=== PATIENT | female | born 1940 | race Caucasian/White ===

== ENCOUNTER 2018-01-21 07:51 | Day surgery (SDC) | payer OTHER ==
[2018-01-20 11:33] VITALS: BMI 20.9
[2018-01-21 09:56] VITALS: TEMP 97.5
[2018-01-21 12:31] VITALS: BP 151/65; PULSE 56
--- NOTE | 2018-01-24 16:59 | PATH ---
Surgical Pathology Report Patient Name: [facility]. Rec. #: [id number] /Age/Gender: 1940 (Age: 77) / F Account: [id number] Location: [facility]-ENDOSCOPY Taken: 01/21/2018 Received: 01/21/2018 Reported: 01/24/2018 Physicians: Tato Dickey M.D. Specimen(s) Received A: BX 2ND PORTION DUODENUM AND DUODENAL BULB B: BX ANTRUM C: BX GASTRIC BODY POLYP D: BX RIGHT COLON POLYP Clinical History Iron deficiency anemia, family history of colon cancer Postoperative diagnosis: Gastric body polyp, right colon polyp, diverticulosis Final Diagnosis A. DUODENUM, SECOND PORTION AND DUODENAL BULB, BIOPSY: DUODENAL MUCOSA WITHOUT SIGNIFICANT PATHOLOGIC FINDINGS. B. STOMACH, ANTRUM, BIOPSY: POLYPOID GASTRIC ANTRAL MUCOSA WITH MILD CHRONIC GASTRITIS, FOCAL FOVEOLAR HYPERPLASIA RARE DILATED GLANDS, AND RARE INTESTINAL METAPLASIA. IMMUNOHISTOCHEMICAL STAIN FOR H. PYLORI IS NEGATIVE. C. GASTRIC BODY, POLYP, BIOPSY: FUNDIC GLAND POLYP. IMMUNOHISTOCHEMICAL STAIN FOR H. PYLORI IS NEGATIVE. D. COLON, RIGHT, POLYP, BIOPSY: TUBULAR ADENOMA. Electronically Signed Dorys Moon M.D. Gross Description A. Received in formalin, labeled "biopsy second portion of duodenum and duodenal bulb" are 5 hutson, irregular portions of soft tissue ranging from 0.1-0.6 cm. in greatest dimension. The specimens are submitted in toto in one cassette. B. Received in formalin, labeled "biopsy antrum" are 2 hutson, irregular portions of soft tissue averaging 0.4 cm. in greatest dimension. The specimens are submitted in toto in one cassette. C. Received in formalin, labeled "biopsy gastric body polyp" is a hutson, irregular portion of soft tissue measuring 0.3 cm. in greatest dimension. The specimen is submitted in toto in one cassette. D. Received in formalin, labeled "biopsy right colon polyp" are 3 hutson, irregular portions of soft tissue ranging from 0.1-0.6 cm. in greatest dimension. The specimens are submitted in toto in one cassette. DL/01/21/2018 saudi/01/21/2018
== END 2018-01-21 10:50 | disposition home or self-care (01) ==
LOC: JASU-ENDO 07:51
PROVIDERS: ATTEND Internal Medicine Gastroenterology
PROC: 0DB68ZX Excision of Stomach, Via Natural or Artificial Opening Endoscopic, Diagnostic (ICD-10-PCS; 2018-01-21)
PROC: 0DBK8ZX Excision of Ascending Colon, Via Natural or Artificial Opening Endoscopic, Diagnostic (ICD-10-PCS; 2018-01-21)
PROC: 0DB98ZX Excision of Duodenum, Via Natural or Artificial Opening Endoscopic, Diagnostic (ICD-10-PCS; principal; 2018-01-21 09:00)
DX: Z12.11 Encounter for screening for malignant neoplasm of colon (principal); Z80.0 Family history of malignant neoplasm of digestive organs; D50.9 Iron deficiency anemia, unspecified; K57.30 Diverticulosis of large intestine without perforation or abscess without bleeding; K64.8 Other hemorrhoids; D12.2 Benign neoplasm of ascending colon; K31.7 Polyp of stomach and duodenum
CPT/HCPCS: 88305-TC; 88342-TC

== ENCOUNTER 2019-06-14 06:56 | Day surgery (SDC) | payer OTHER ==
[2019-06-12 12:36] VITALS: BMI 20.5
[2019-06-14] MEDS: TROPICAMIDE 1% OPHTH SOLN 15 ML BOTTLE ONE ×3 (07:25→07:35)
[2019-06-14] MEDS: CIPROFLOXACIN 0.3% EYE DROPS 5 ML BOTTLE ONE ×3 (07:25→07:35)
[2019-06-14] MEDS: CYCLOPENTOLATE 2% OPHTH SOLN 2 ML BOTTLE ONE ×3 (07:25→07:35)
[2019-06-14] MEDS: PHENYLEPHRINE 2.5% OPHTH SOLN 15 ML BOTTLE ONE ×3 (07:25→07:35)
[2019-06-14] MEDS ORDERED: BSS (NA/CA/MG/K) BALANCED SALT SOLUTION OPHTH SOLN 15 ML BOTTLE ONE (08:49)
[2019-06-14] MEDS ORDERED: CARBACHOL 0.01% INTRA-OCULAR 1.5 ML VIAL ONE (08:49)
[2019-06-14] MEDS ORDERED: NEO/POLYMYX B SULF/DEXAMETH OPHTHALMIC 5ML BOTTLE ONE (08:49)
[2019-06-14] MEDS ORDERED: LIDOCAINE 1% P/F 10 MG/ML VIAL ONE (08:49)
[2019-06-14] MEDS ORDERED: MIDAZOLAM HCL 2 MG/2 ML SINGLE DOSE VIAL ONE (08:58)
[2019-06-14 09:33] VITALS: TEMP 97.5
[2019-06-14 09:59] VITALS: BP 159/73; PULSE 61
--- NOTE | 2019-06-14 23:30 | OP ---
DATE OF OPERATION: 06/14/2019 OPERATIVE PROCEDURE: Lens Phacoemulsification with Posterior Chamber Intraocular Lens Placement Right Eye PREOPERATIVE DIAGNOSIS: Visually Significant Cataract of Right Eye POSTOPERATIVE DIAGNOSIS: Visually Significant Cataract of Right Eye SURGEON: Roni Montenegro M.D. ANESTHESIA: MAC PROCEDURE: The patient was brought to the operating room and placed under monitored anesthesia care by Anesthesia. A drop of Tetracaine was then placed over the right eye. The patient was then prepped and draped in the usual sterile manner. A speculum was then placed over the right eye. The eye was then well irrigated with copious amounts of BSS (balanced salt solution). The operating microscope was then moved into position. A paracentesis was performed using a 15 degree blade. At this point 0.5 mL of 1% preservative-free lidocaine was injected into the anterior chamber. Amvisc plus was then injected into the anterior chamber. A clear corneal incision was then formed using a 2.2 mm keratome. A capsulorrhexis was then performed in a continuous circular fashion beginning with a cystotome, completed with an Utratas forceps. Hydrodissection was then performed using BSS on a cannula. The phaco probe was then introduced through the corneal wound and the cataract was removed using the phaco chop technique. Approximately 3 seconds of absolute phaco time was used. The remaining cortex was then removed using irrigation and aspiration with an I/A probe. The capsule was then filled with regular Amvisc and the capsule was noted to be intact. A previously selected foldable posterior chamber intraocular lens was then injected into the capsule through the corneal wound using a lens injector. It was then dialed into position using a Sinskey hook. The Amvisc was then removed using irrigation and aspiration. Miostat was then injected through the paracentesis to constrict the pupil. The paracentesis and corneal wound were then hydrated and noted to be water tight. A drop of Maxitrol was then placed over the eye. The speculum was removed and clear shield was taped over the eye. The patient tolerated the procedure well and there were no surgical complications. The patient was asked to follow up in my office the next day. RONI MONTENEGRO M.D. SABRINA/[id number]
== END 2019-06-14 10:05 | disposition home or self-care (01) ==
LOC: MERGE 06:56 → FASU 06:56
PROVIDERS: ATTEND Ophthalmology
PROC: 08RJ3JZ Replacement of Right Lens with Synthetic Substitute, Percutaneous Approach (ICD-10-PCS; principal; 2019-06-14 09:12)
DX: H26.8 Other specified cataract (principal)

== ENCOUNTER 2019-10-04 06:21 | Day surgery (SDC) | payer OTHER ==
[2019-09-29 17:17] VITALS: BMI 20.7
[2019-10-04] MEDS ORDERED: LOCK ITEM NR ONE (06:33)
[2019-10-04] MEDS: TROPICAMIDE 1% OPHTH SOLN 15 ML BOTTLE ONE ×3 (07:05→07:15)
[2019-10-04] MEDS: CYCLOPENTOLATE 2% OPHTH SOLN 2 ML BOTTLE ONE ×3 (07:05→07:15)
[2019-10-04] MEDS: PHENYLEPHRINE 2.5% OPHTH SOLN 15 ML BOTTLE ONE ×3 (07:05→07:15)
[2019-10-04] MEDS: CIPROFLOXACIN 0.3% EYE DROPS 5 ML BOTTLE ONE ×3 (07:05→07:15)
[2019-10-04] MEDS ORDERED: TETRACAINE 0.5% OPHTH SOLN 2 ML BOTTLE ONE (07:20)
[2019-10-04] MEDS ORDERED: LIDOCAINE 1% P/F 10 MG/ML VIAL ONE (07:20)
[2019-10-04] MEDS ORDERED: BSS (NA/CA/MG/K) BALANCED SALT SOLUTION OPHTH SOLN 15 ML BOTTLE ONE (07:20)
[2019-10-04] MEDS ORDERED: NEO/POLYMYX B SULF/DEXAMETH OPHTHALMIC 5ML BOTTLE ONE (07:21)
[2019-10-04] MEDS ORDERED: CARBACHOL 0.01% INTRA-OCULAR 1.5 ML VIAL ONE (07:21)
[2019-10-04] MEDS ORDERED: EPINEPHrine/PF 1 MG/1 ML (1:1,000) AMPULE ONE (07:24)
[2019-10-04] MEDS ORDERED: MIDAZOLAM HCL 2 MG/2 ML SINGLE DOSE VIAL ONE (07:31)
[2019-10-04 08:43] VITALS: TEMP 98.1
[2019-10-04 09:13] VITALS: BP 145/71; PULSE 64
--- NOTE | 2019-10-05 08:36 | OP ---
DATE OF OPERATION: 10/04/2019 OPERATIVE PROCEDURE: Lysis of posterior iris lens synechia and lens phacoemulsification with posterior chamber intraocular lens placement, left eye. PREOPERATIVE DIAGNOSIS: Visually significant cataract and posterior synechia of left eye. POSTOPERATIVE DIAGNOSIS: Visually significant cataract and posterior synechia of left eye. SURGEON: Roni Montenegro MD ANESTHESIA: MAC. PROCEDURE: The patient was brought to the operating room and placed under monitored anesthesia care by Anesthesia. A drop of tetracaine was then placed over the left eye. The patient was then prepped and draped in the usual sterile manner. A speculum was then placed over the left eye. The eye was then well irrigated with copious amounts of BSS (balanced salt solution). The operating microscope was then moved into position. A paracentesis was performed using a 15-degree blade. At this point, 0.5 mL of 1% preservative-free lidocaine was injected into the anterior chamber. Amvisc Plus was then injected into the anterior chamber. A clear corneal incision was then formed using a 2.2-mm keratome. A cyclodialysis spatula was then used to break the posterior synechia. Two [employer] iris hooks were then used to stretch the iris. More Amvisc Plus was then injected into the anterior chamber. A capsulorrhexis was then performed in a continuous circular fashion beginning with a cystotome and completed with an Utrata's forceps. Hydrodissection was then performed using BSS on a cannula. The phaco probe was then introduced through the corneal wound and the cataract was removed using the phaco chop technique. Approximately 3 seconds of absolute phaco time was used. The remaining cortex was then removed using irrigation and aspiration with an I/A probe. The capsule was then filled with regular Amvisc and the capsule was noted to be intact. A previously selected foldable posterior chamber intraocular lens was then injected into the capsule through the corneal wound using a lens injector. It was then dialed into position using a Sinskey hook. The Amvisc was then removed using irrigation and aspiration. Miostat was then injected through the paracentesis to constrict the pupil. The paracentesis and corneal wound were then hydrated and noted to be watertight. A drop of Maxitrol was then placed over the eye. The speculum was removed and clear shield was taped over the eye. The patient tolerated the procedure well and there were no surgical complications. The patient was asked to follow up in my office the next day. RONI MONTENEGRO M.D. [id number]
== END 2019-10-04 09:10 | disposition home or self-care (01) ==
LOC: FASU 06:21
PROVIDERS: ATTEND Ophthalmology
PROC: 08RK3JZ Replacement of Left Lens with Synthetic Substitute, Percutaneous Approach (ICD-10-PCS; principal; 2019-10-04 08:19)
DX: H26.8 Other specified cataract (principal)

== ENCOUNTER 2020-07-24 04:48 | Day surgery (SDC) | payer BC ==
[2020-07-24 10:08] VITALS: TEMP 97.1
[2020-07-24 12:31] VITALS: BP 171/76; PULSE 72
== END 2020-07-24 11:35 | disposition home or self-care (01) ==
LOC: JASU-ENDO 04:48
PROVIDERS: ATTEND Internal Medicine Gastroenterology
PROC: 0DB98ZX Excision of Duodenum, Via Natural or Artificial Opening Endoscopic, Diagnostic (ICD-10-PCS; 2020-07-24)
PROC: 0DB78ZX Excision of Stomach, Pylorus, Via Natural or Artificial Opening Endoscopic, Diagnostic (ICD-10-PCS; 2020-07-24)
PROC: 0DB28ZX Excision of Middle Esophagus, Via Natural or Artificial Opening Endoscopic, Diagnostic (ICD-10-PCS; 2020-07-24)
PROC: 0DB38ZX Excision of Lower Esophagus, Via Natural or Artificial Opening Endoscopic, Diagnostic (ICD-10-PCS; 2020-07-24)
PROC: 0DJD8ZZ Inspection of Lower Intestinal Tract, Via Natural or Artificial Opening Endoscopic (ICD-10-PCS; principal; 2020-07-24 09:00)
DX: Z12.11 Encounter for screening for malignant neoplasm of colon (principal); K57.30 Diverticulosis of large intestine without perforation or abscess without bleeding; K20.80 Other esophagitis without bleeding; K29.40 Chronic atrophic gastritis without bleeding; K59.00 Constipation, unspecified; R13.10 Dysphagia, unspecified
CPT/HCPCS: 43239; G0105

== ENCOUNTER 2020-11-27 11:48 | Inpatient (IN) | payer BC ==
[2020-11-27] MEDS ORDERED: ACETAMINOPHEN 1000 MG/100 ML VIAL (NON FORMULARY) IVPB ONE (14:22)
[2020-11-27] MEDS ORDERED: SODIUM CHLORIDE 1,000 ML IV STA (14:22)
[2020-11-27] MEDS ORDERED: ACETAMINOPHEN INJECTION 100 ML IVPB ONE (14:52)
[2020-11-27 15:13] LABS: BASO % 0.3 % (0-2.0); HEMATOCRIT 43.5 % (32.4-45.2); HEMOGLOBIN 15.1 GM/dL (10.7-15.3); LYMPH % 6.5 % (8-40); MCH 32.7 pg (25.7-33.7); MCHC 34.6 g/dl (32.0-36.0); MEAN CELL VOLUME 94.5 fl (80-96); MEAN PLT VOLUME 7.4 fl (7.5-11.1); MONO % 6.3 % (3.8-10.2); NEUT % 86.9 % (42.8-82.8); PLATELET COUNT 215 10^3/uL (134-434); RBC 4.61 M/mm3 (3.60-5.2); RDW 13.4 % (11.6-15.6); WHITE BLOOD COUNT 12.4 K/mm3 (4.0-10.0)
[2020-11-27 15:19] LABS: INR 1.49 (0.83-1.09); PROTHROMBIN TIME (PATIENT) 18.1 SEC (9.7-13.0)
[2020-11-27 15:22] LABS: ACTIVATED PTT 42.7 SECONDS (25.2-36.5)
[2020-11-27 15:44] LABS: CHLORIDE 96 mmol/L (98-107); SODIUM 128 mmol/L (136-145)
[2020-11-27 15:46] LABS: ALBUMIN 3.3 g/dl (3.4-5.0); CALCIUM 9.3 mg/dL (8.5-10.1); LIPASE < 10 U/L (73-393)
[2020-11-27 15:47] LABS: BLOOD UREA NITROGEN 11.8 mg/dL (7-18); CO2 25 mmol/L (21-32); GLUCOSE,RANDOM 90 mg/dL (74-106)
[2020-11-27 15:50] LABS: CREATININE 0.8 mg/dL (0.55-1.3)
[2020-11-27 15:51] LABS: ALK PHOS 126 U/L (45-117); BILIRUBIN,TOTAL 0.9 mg/dL (0.2-1); TOT PROT 8.9 g/dl (6.4-8.2)
[2020-11-27 16:02] LABS: ANION GAP 7 MMOL/L (8-16); SGOT/AST 124 U/L (15-37); SGPT/ALT 32 U/L (13-61)
[2020-11-27 19:20] LABS: EPI CELLS 10 /uL (0-25.1); HYALINE CASTS 1 /uL (0-3.1); PH,URINE 5.5 (5.0-8.0); URINE APPEARANCE CLOUDY; URINE BACTERIA >9,000 /uL (0-1359); URINE BILIRUBIN NEGATIVE (NEGATIVE); URINE COLOR YELLOW; URINE GLUCOSE (UA) NEGATIVE (NEGATIVE); URINE KETONE 1+ (NEGATIVE); URINE LEUK ESTERASE 2+ (NEGATIVE); URINE NITRITE NEGATIVE (NEGATIVE); URINE PROTEIN TRACE (NEGATIVE); URINE RBC 263 /uL (0-23.9); URINE UROBILINOGEN 0.2 mg/dL (0.2-1.0); URINE WBC 96 /uL (0-25.8)
[2020-11-27 19:33] LABS: CALCIUM 8.5 mg/dL (8.5-10.1)
[2020-11-27 19:37] LABS: CREATININE 0.6 mg/dL (0.55-1.3)
[2020-11-27 19:38] LABS: BILIRUBIN,TOTAL 0.8 mg/dL (0.2-1)
[2020-11-27 19:41] LABS: BLOOD UREA NITROGEN 10.5 mg/dL (7-18)
[2020-11-27 19:47] LABS: TOT PROT 6.6 g/dl (6.4-8.2)
[2020-11-27] MEDS ORDERED: SODIUM CHLORIDE 1,000 ML IV SCH (21:45)
[2020-11-27] MEDS ORDERED: POTASSIUM CHLORIDE ORAL LIQUID 20 MEQ/15 ML PO ONE (21:51)
[2020-11-27] MEDS ORDERED: FAMOTIDINE 20 MG TABLET ONE (22:15)
[2020-11-27] MEDS ORDERED: CEFTRIAXONE 1 GM/50 ML BAG ONE (22:16)
[2020-11-27] MEDS: CEFTRIAXONE 1 GM in DEXTROSE 5%-WATER - 50 ML IVPB SCH (22:29)
[2020-11-27] MEDS: APIXABAN 5 MG TABLET PO SCH (22:29)
[2020-11-27] MEDS: FAMOTIDINE 20 MG TABLET PO SCH (22:29)
[2020-11-28] MEDS: ACETAMINOPHEN 325 MG TABLET (FP) PO PRN ×3 (02:16→21:15)
[2020-11-28 02:37] VITALS: BMI 21.4
[2020-11-28] MEDS ORDERED: KCL 10 MEQ IVPB 10 MEQ/100 ML INFUS.BAG IVPB SCH (05:30)
[2020-11-28] MEDS ORDERED: cefTRIAXone SODIUM 1 GM VIAL ONE (09:35)
[2020-11-28] MEDS ORDERED: DEXTROSE 5%-WATER - 50 ML IVPB ONE (09:35)
[2020-11-28] MEDS: FAMOTIDINE 20 MG TABLET PO SCH (09:52)
[2020-11-28] MEDS: CEFTRIAXONE 1 GM in DEXTROSE 5%-WATER - 50 ML IVPB SCH (09:52)
[2020-11-28] MEDS: APIXABAN 5 MG TABLET PO SCH ×2 (09:52→21:15)
[2020-11-28 09:58] LABS: BASO % 0.2 % (0-2.0); HEMATOCRIT 35.1 % (32.4-45.2); HEMOGLOBIN 12.2 GM/dL (10.7-15.3); LYMPH % 8.7 % (8-40); MCH 32.9 pg (25.7-33.7); MCHC 34.7 g/dl (32.0-36.0); MEAN CELL VOLUME 94.9 fl (80-96); MEAN PLT VOLUME 7.2 fl (7.5-11.1); MONO % 9.7 % (3.8-10.2); NEUT % 81.4 % (42.8-82.8); PLATELET COUNT 174 10^3/uL (134-434); RBC 3.69 M/mm3 (3.60-5.2); RDW 13.4 % (11.6-15.6); WHITE BLOOD COUNT 9.4 K/mm3 (4.0-10.0)
[2020-11-28 10:22] LABS: ALBUMIN 2.8 g/dl (3.4-5.0); CALCIUM 8.6 mg/dL (8.5-10.1)
[2020-11-28 10:25] LABS: CREATININE 0.7 mg/dL (0.55-1.3); PHOSPHOROUS 2.5 mg/dL (2.5-4.9)
[2020-11-28 10:26] LABS: BILIRUBIN,TOTAL 0.8 mg/dL (0.2-1)
[2020-11-28 10:27] LABS: TOT PROT 6.3 g/dl (6.4-8.2)
[2020-11-28] MEDS ORDERED: PT OWN MED DRAWER 7, Y5N ONE ×2 (16:41→21:02)
[2020-11-28] MEDS: DRONEDARONE HCL 400 MG TAB (FP) PO SCH ×2 (16:47→21:48)
[2020-11-29 09:36] LABS: HEMATOCRIT 34.5 % (32.4-45.2); HEMOGLOBIN 12.2 GM/dL (10.7-15.3); MCH 33.2 pg (25.7-33.7); MCHC 35.2 g/dl (32.0-36.0); MEAN CELL VOLUME 94.3 fl (80-96); MEAN PLT VOLUME 7.4 fl (7.5-11.1); PLATELET COUNT 193 10^3/uL (134-434); RBC 3.66 M/mm3 (3.60-5.2); RDW 12.8 % (11.6-15.6); WHITE BLOOD COUNT 8.1 K/mm3 (4.0-10.0)
[2020-11-29] MEDS ORDERED: PT OWN MED DRAWER 7, Y5N ONE (10:05)
[2020-11-29] MEDS ORDERED: cefTRIAXone SODIUM 1 GM VIAL ONE (10:06)
[2020-11-29] MEDS ORDERED: DEXTROSE 5%-WATER - 50 ML IVPB ONE (10:06)
[2020-11-29 10:15] LABS: BLOOD UREA NITROGEN 9.6 mg/dL (7-18); CALCIUM 8.5 mg/dL (8.5-10.1)
[2020-11-29 10:18] LABS: CREATININE 0.5 mg/dL (0.55-1.3)
[2020-11-29] MEDS: APIXABAN 5 MG TABLET PO SCH ×2 (10:36→21:06)
[2020-11-29] MEDS: FAMOTIDINE 20 MG TABLET PO SCH (10:36)
[2020-11-29] MEDS: DRONEDARONE HCL 400 MG TAB (FP) PO SCH ×2 (10:37→21:06)
[2020-11-29] MEDS: CEFTRIAXONE 1 GM in DEXTROSE 5%-WATER - 50 ML IVPB SCH (10:37)
[2020-11-29] MEDS: BENZOCAINE/MENTH/CETYLPYRD CL 1 EACH LOZENGE MM PRN ×2 (10:38→20:35)
[2020-11-29] MEDS: LOSARTAN POTASSIUM 50 MG TABLET PO SCH (17:31)
[2020-11-29] MEDS ORDERED: MAG HYDROX/AL HYDROX/SIMETH 30 ML UNIT-DOSE CUP PO ONE (20:56)
[2020-11-30] MEDS ORDERED: PT OWN MED DRAWER 7, Y5N ONE ×2 (02:11→21:21)
[2020-11-30 08:12] LABS: BASO % 0.2 % (0-2.0); EOS % 0.4 % (0-4.5); HEMATOCRIT 32.2 % (32.4-45.2); HEMOGLOBIN 11.3 GM/dL (10.7-15.3); LYMPH % 24.5 % (8-40); MCH 33.4 pg (25.7-33.7); MCHC 35.1 g/dl (32.0-36.0); MEAN CELL VOLUME 95.3 fl (80-96); MONO % 12.5 % (3.8-10.2); NEUT % 62.4 % (42.8-82.8); PLATELET COUNT 216 10^3/uL (134-434); RBC 3.38 M/mm3 (3.60-5.2); RDW 12.7 % (11.6-15.6); WHITE BLOOD COUNT 6.7 K/mm3 (4.0-10.0)
[2020-11-30 08:30] LABS: ALBUMIN 2.4 g/dl (3.4-5.0); BLOOD UREA NITROGEN 12.4 mg/dL (7-18); CALCIUM 8.3 mg/dL (8.5-10.1); MAGNESIUM 2.2 mg/dL (1.8-2.4)
[2020-11-30 08:32] LABS: CREATININE 0.9 mg/dL (0.55-1.3)
[2020-11-30 08:35] LABS: BILIRUBIN,TOTAL 0.4 mg/dL (0.2-1); TOT PROT 5.5 g/dl (6.4-8.2)
[2020-11-30] MEDS ORDERED: DEXTROSE 5%-WATER - 50 ML IVPB ONE (09:12)
[2020-11-30] MEDS ORDERED: cefTRIAXone SODIUM 1 GM VIAL ONE (09:12)
[2020-11-30] MEDS: FAMOTIDINE 20 MG TABLET PO SCH (10:16)
[2020-11-30] MEDS: DRONEDARONE HCL 400 MG TAB (FP) PO SCH ×2 (10:16→21:22)
[2020-11-30] MEDS: LOSARTAN POTASSIUM 50 MG TABLET PO SCH (10:16)
[2020-11-30] MEDS: APIXABAN 5 MG TABLET PO SCH ×2 (10:17→21:22)
[2020-11-30] MEDS: BENZOCAINE/MENTH/CETYLPYRD CL 1 EACH LOZENGE MM PRN (10:17)
[2020-11-30] MEDS: POLYETHYLENE GLYCOL (HEALTHYLAX) 3350 17 GM PACKET PO SCH (10:18)
[2020-11-30] MEDS: CEFTRIAXONE 1 GM in DEXTROSE 5%-WATER - 50 ML IVPB SCH (10:18)
[2020-11-30] MEDS: ACETAMINOPHEN 325 MG TABLET (FP) PO PRN (17:22)
[2020-12-01] MEDS ORDERED: cefTRIAXone SODIUM 1 GM VIAL ONE (09:16)
[2020-12-01] MEDS ORDERED: DEXTROSE 5%-WATER - 50 ML IVPB ONE (09:16)
[2020-12-01] MEDS ORDERED: PT OWN MED DRAWER 7, Y5N ONE ×2 (09:16→21:00)
[2020-12-01] MEDS: LOSARTAN POTASSIUM 50 MG TABLET PO SCH (09:32)
[2020-12-01] MEDS: FAMOTIDINE 20 MG TABLET PO SCH (09:32)
[2020-12-01] MEDS: APIXABAN 5 MG TABLET PO SCH ×2 (09:32→21:10)
[2020-12-01] MEDS: DRONEDARONE HCL 400 MG TAB (FP) PO SCH ×2 (09:32→21:11)
[2020-12-01] MEDS: CEFTRIAXONE 1 GM in DEXTROSE 5%-WATER - 50 ML IVPB SCH (09:32)
[2020-12-01] MEDS: POLYETHYLENE GLYCOL (HEALTHYLAX) 3350 17 GM PACKET PO SCH ×2 (09:42→15:55)
[2020-12-01 10:05] LABS: BASO % 0.2 % (0-2.0); EOS % 0.8 % (0-4.5); HEMATOCRIT 33.3 % (32.4-45.2); HEMOGLOBIN 11.8 GM/dL (10.7-15.3); LYMPH % 21.9 % (8-40); MCH 33.4 pg (25.7-33.7); MCHC 35.4 g/dl (32.0-36.0); MEAN CELL VOLUME 94.2 fl (80-96); MEAN PLT VOLUME 7.2 fl (7.5-11.1); NEUT % 69.1 % (42.8-82.8); PLATELET COUNT 271 10^3/uL (134-434); RBC 3.53 M/mm3 (3.60-5.2); RDW 12.7 % (11.6-15.6); WHITE BLOOD COUNT 5.8 K/mm3 (4.0-10.0)
[2020-12-01 10:12] LABS: ALBUMIN 2.6 g/dl (3.4-5.0); BLOOD UREA NITROGEN 10.8 mg/dL (7-18); CALCIUM 8.3 mg/dL (8.5-10.1); MAGNESIUM 2.2 mg/dL (1.8-2.4)
[2020-12-01 10:17] LABS: BILIRUBIN,TOTAL 0.4 mg/dL (0.2-1)
[2020-12-01] MEDS ORDERED: POTASSIUM CHLORIDE TABS 20 MEQ TABLET.ER (FP) PO ONE (10:30)
[2020-12-01 10:31] LABS: TOT PROT 7.7 g/dl (6.4-8.2)
[2020-12-01] MEDS: ACETAMINOPHEN 325 MG TABLET (FP) PO PRN (13:38)
[2020-12-02 09:29] LABS: BASO % 0.1 % (0-2.0); HEMATOCRIT 34.6 % (32.4-45.2); HEMOGLOBIN 11.9 GM/dL (10.7-15.3); LYMPH % 32.4 % (8-40); MCH 32.7 pg (25.7-33.7); MCHC 34.4 g/dl (32.0-36.0); MEAN CELL VOLUME 95.1 fl (80-96); MEAN PLT VOLUME 6.8 fl (7.5-11.1); MONO % 8.4 % (3.8-10.2); NEUT % 58.1 % (42.8-82.8); PLATELET COUNT 306 10^3/uL (134-434); RBC 3.64 M/mm3 (3.60-5.2); RDW 12.8 % (11.6-15.6); WHITE BLOOD COUNT 6.4 K/mm3 (4.0-10.0)
[2020-12-02] MEDS ORDERED: PT OWN MED DRAWER 7, Y5N ONE (09:54)
[2020-12-02] MEDS: APIXABAN 5 MG TABLET PO SCH (09:55)
[2020-12-02] MEDS: LOSARTAN POTASSIUM 50 MG TABLET PO SCH (09:55)
[2020-12-02] MEDS: POLYETHYLENE GLYCOL (HEALTHYLAX) 3350 17 GM PACKET PO SCH (09:55)
[2020-12-02] MEDS: DRONEDARONE HCL 400 MG TAB (FP) PO SCH (09:56)
[2020-12-02] MEDS: FAMOTIDINE 20 MG TABLET PO SCH (09:56)
[2020-12-02 09:59] LABS: ALBUMIN 2.9 g/dl (3.4-5.0); BLOOD UREA NITROGEN 10.8 mg/dL (7-18); CALCIUM 9.2 mg/dL (8.5-10.1); MAGNESIUM 2.1 mg/dL (1.8-2.4)
[2020-12-02] MEDS ORDERED: CEFUROXIME AXETIL 500 MG TABLET PO SCH (10:00)
[2020-12-02 10:02] LABS: CREATININE 0.6 mg/dL (0.55-1.3)
[2020-12-02 10:05] LABS: BILIRUBIN,TOTAL 0.5 mg/dL (0.2-1); TOT PROT 6.7 g/dl (6.4-8.2)
[2020-12-02 13:17] VITALS: BP 130/78; PULSE 77; TEMP 98.4
== END 2020-12-02 13:57 | disposition home or self-care (01) | DRG 690 ==
LOC: JER 11:48 → OBSVTOIN 18:39 → JERBED 18:39 → J5S 23:03
PROVIDERS: ADMIT Internal Medicine; ATTEND Nurse Practitioner Acute Care
DX: N12 Tubulo-interstitial nephritis, not specified as acute or chronic (principal); D64.9 Anemia, unspecified; N39.0 Urinary tract infection, site not specified; Z79.01 Long term (current) use of anticoagulants; I10 Essential (primary) hypertension; K21.9 Gastro-esophageal reflux disease without esophagitis; E87.6 Hypokalemia; A08.4 Viral intestinal infection, unspecified; I48.0 Paroxysmal atrial fibrillation; K59.09 Other constipation; K57.90 Diverticulosis of intestine, part unspecified, without perforation or abscess without bleeding; B96.1 Klebsiella pneumoniae [K. pneumoniae] as the cause of diseases classified elsewhere
CPT/HCPCS: 36415; 71045-TC-FY; 74177-TC; 80048; 80053; 81003; 83605; 83690; 83735; 84100; 84484; 85025; 85027; 85610; 85730; 87040; 87086; 87186; 87804; 93005; 93010; 99285-25; C9803; J0131; Q9967; U0003; U0005